=== PATIENT | male | born 1955 | race Caucasian/White ===

== ENCOUNTER → 2019-07-12 11:37 | Outpatient (CLI) | payer MEDICARE, OTHER, SELFPAY ==
--- NOTE | 2019-07-12 | DI.MRI.S_ITS ---
PROCEDURE: MR LUMBAR SPINE WO CON INDICATIONS: Other symptoms and signs involving the musculoskel TECHNIQUE: Noncontrast sagittal T1 spin echo and T2 fast echo, sagittal STIR, axial T1 and T2 fast spin echo through the lumbar spine. In cases with scoliosis, additional coronal T2 fast spin echo may be performed. COMPARISON: None. FINDINGS: Image quality: Excellent. Alignment and Curvature: There is normal bony alignment. Bone Marrow: There is a Schmorl's node in inferior endplate of L2. No acute vertebral body compression fractures. Spinal Cord: Conus medullaris terminates at the L1-L2 level. Visualized cord demonstrates normal signal and size. Paraspinous Soft Tissues: There is a cystic mass posterior to the left L4-L5 facet joint measuring 2.8 x 3.4 x 5.5 cm, most likely a large synovial cyst. L1-L2: Normal appearance. L2-L3: Mild loss of disc height and disc desiccation. There is diffuse posterior and posterior lateral disc bulge and disc osteophyte complex. Hqtk-zl-hnihjejv bilateral facet arthropathy and hypertrophy of ligamentum flavum. The central canal is mildly narrowed. Mild bilateral foraminal stenosis. L3-L4: Mild loss of disc height and disc desiccation. There is diffuse posterior and posterior lateral disc bulge and disc osteophyte complex. Fcut-tq-wjxokxke bilateral facet arthropathy and hypertrophy of ligamentum flavum. The central canal is mildly narrowed. Mild bilateral foraminal stenosis. L4-L5: Mqeg-cn-kjzsosfy loss of disc height and disc desiccation. There is diffuse posterior and posterior lateral disc bulge and disc osteophyte complex. Mild-to moderate bilateral facet arthropathy and hypertrophy of ligamentum flavum. There is a cystic mass posterior to the left facet joint measuring 2.8 x 3.4 x 5.5 cm, most likely a large synovial cyst. The central canal is mildly narrowed. Mild bilateral foraminal stenosis. L5-S1: Normal appearance. IMPRESSION: 1. Multilevel degenerative disc disease and facet arthropathy as described. 2. Mild central canal stenosis at L2-L3, L3-L4 and L4-L5. 3. Bmue-vw-oujkissg bilateral foraminal stenosis at L2-L3, L3-L4 and L4-L5. 4. A 2.8 x 3.4 x 5.5 cm cystic mass posterior to the left L4-L5 facet joint measuring, most likely a large synovial cyst. Dictated by: Yo Colindres M.D. on 07/12/2019 at 13:18 Approved by: Yo Colindres M.D. on 07/12/2019 at 13:29
== END ==
PROVIDERS: Family Provider Family Medicine; PCP Family Medicine; Visit Provider Internal Medicine Critical Care Medicine
DX: R29.898 Other symptoms and signs involving the musculoskeletal system (principal); M51.46 Schmorl's nodes, lumbar region; M51.36 Other intervertebral disc degeneration, lumbar region; M47.816 Spondylosis without myelopathy or radiculopathy, lumbar region; M48.061 Spinal stenosis, lumbar region without neurogenic claudication; M53.86 Other specified dorsopathies, lumbar region
CPT/HCPCS: 72148

== ENCOUNTER → 2019-08-26 10:34 | Outpatient (CLI) | payer MEDICARE, OTHER, SELFPAY ==
[2019-08-26 12:10] LABS: Add Manual Diff / Slide Review NO; Basophils Absolute Auto 100 /uL (0-100); Basophils Percent Auto 1.2 % (0-2); Eosinophils Absolute Auto 400 /uL (0-450); Eosinophils Percent Auto 7.8 % (2-4); Hematocrit 47.3 % (41-53); Hemoglobin 16.2 g/dL (13.5-17.5); Lymphocytes Absolute Auto 1300 /uL (1100-4500); Lymphocytes Percent Auto 24.7 % (25-40); Mean Corpuscular HGB Conc 34.2 % (30-36); Mean Corpuscular Hemoglobin 31.6 PG (26-34); Mean Corpuscular Volume 92.4 fL (80-100); Monocytes Absolute Auto 600 /uL (0-900); Monocytes Percent Auto 12.3 % (3-14); Neutrophils Absolute Auto 2800 /uL (1500-7000); Platelet Count 268 X10^3/uL (150-400); Red Blood Cell Count 5.12 X10^6/uL (4.5-5.9); Red Cell Distribution Width 14.5 % (11.6-14.8); White Blood Cell Count 5.1 X10^3/uL (4.5-11.0)
[2019-08-26 12:17] LABS: Alanine Aminotransferase 31 IU/L (<50); Albumin 4.6 g/dL (3.5-5.0); Albumin Globulin Ratio 1.4 (1.0-2.8); Alkaline Phosphatase 63 U/L (38-126); Aspartate Aminotransferase 32 IU/L (17-59); Bilirubin Total 0.8 mg/dL (0.2-1.3); Blood Urea Nitrogen 12 mg/dL (9-20); Calcium 9.3 mg/dL (8.4-10.2); Carbon Dioxide 28 mmol/L (22-32); Chloride 99 mmol/L (98-107); Cholesterol 195 mg/dL (140-199); Estimated Glomerular Filt Rate > 60.0 mL/min (>60); Globulin 3.3 g/dL (1.7-4.1); Glucose 87 mg/dL (80-110); HDL Cholesterol 61 mg/dL (40-60); HEMOLYSIS < 15 (0-50); LDL Cholesterol Calculated 122 mg/dL (<100); Potassium 4.5 mmol/L (3.4-5.1); Sodium 136 mmol/L (137-145); Total Protein 7.9 g/dL (6.3-8.2); Triglycerides 59 mg/dL (35-150)
[2019-08-26 15:52] LABS: Hep C Virus Ab w/Reflex Quant NEGATIVE s/c (NEGATIVE)
[2019-08-28 15:13] LABS: PSA Total 1.64 ng/mL (< 4.01)
[2019-08-29 21:45] LABS: Testosterone Free 296.7 pg/mL (35.0-155.0); Testosterone Total 1085 ng/dL (250-1100)
== END ==
PROVIDERS: Family Provider Family Medicine; PCP Family Medicine; Referring Provider Family Medicine; Visit Provider Family Medicine
DX: Z11.59 Encounter for screening for other viral diseases (principal); E29.1 Testicular hypofunction; I10 Essential (primary) hypertension
CPT/HCPCS: 36415; 80053; 80061; 84153; 84154; 84402; 84403; 85025; 86803

== ENCOUNTER → 2019-12-30 08:37 | Outpatient (CLI) | payer MEDICARE, OTHER, SELFPAY ==
--- NOTE | 2019-12-30 | DI.MRI.S_ITS ---
PROCEDURE: MR LUMBAR SPINE WO/W CON INDICATIONS: LUMBAR RADICULOPATHY TECHNIQUE: Noncontrast sagittal T1 spin echo and T2 fast spin echo, sagittal STIR, axial T1 and T2 fast spin echo through the lumbar spine. In cases with scoliosis, additional coronal T2 fast spin echo may be performed. After the administration of contrast, sagittal and axial T1 spin echo with fat saturation through the lumbar spine. COMPARISON: [facility], MR, MR LUMBAR SPINE WO CON, 07/12/2019, 11:55. FINDINGS: Image quality: Excellent. Alignment and curvature: There is normal bony alignment. Marrow: Multilevel degenerative endplate sclerosis and spurring. Diffuse facet arthropathy. Schmorl's node at the inferior endplate of L2 with adjacent marrow edema, increased since prior study. No acute vertebral body compression fractures. No suspicious marrow enhancement. Spinal cord: Conus medullaris terminates at the L1 level. Visualized spinal cord demonstrates normal signal, without suspicious enhancement. Paraspinous soft tissues: Postsurgical changes related to surgical resection of previously reported cystic mass at the level of L4-L5. There is solid-appearing enhancement present along the L4-L5 facet joint and L4-L5 spinous processes. No definite rim enhancing abscess is seen. There is also overlying subcutaneous enhancement. There is also mild adjacent marrow edema within the spinous process of L4, which could also be reactive/degenerative since it was present on the prior study although to a slightly lesser degree. Dorsal epidural lipomatosis mostly at the level of L4-L5. This is unchanged L1-L2: Normal appearance. L2-L3: Mild canal narrowing. Partial effacement of both lateral recesses with bilaterally symmetric appearance. Mild left foraminal narrowing. Moderate right foraminal stenosis. No interval change L3-L4: Moderate canal narrowing. Partial effacement of both lateral recesses with bilaterally symmetric appearance. Moderate left foraminal stenosis with slight nerve root compression. Mild right foraminal narrowing with borderline nerve root compression. No interval change L4-L5: Moderate canal narrowing. Partial effacement of both lateral recesses with bilaterally symmetric appearance. Mild right foraminal narrowing with slight nerve root compression. Severe left foraminal stenosis with nerve root compression. This appears unchanged L5-S1: No canal stenosis. No right foraminal narrowing. Moderate left foraminal stenosis with slight nerve root compression which is unchanged.. IMPRESSION: Status post resection of large left posterior paraspinal cystic mass at the L4-L5 level. In the operative bed there is solid-appearing peripheral enhancement which could reflect postoperative granulation tissue although cannot exclude infectious cellulitis. No discrete drainable abscess identified. Recommend clinical and laboratory correlation. Multilevel spondylosis and facet disease which is grossly unchanged as detailed above. Worsening marrow edema adjacent to Schmorl's node in the inferior endplate of L2. Dictated by: Drake Hernandez M.D. on 12/30/2019 at 10:23 Approved by: Drake Hernandez M.D. on 12/30/2019 at 10:42
== END ==
PROVIDERS: Family Provider Family Medicine; PCP Family Medicine; Referring Provider Physician Assistant; Visit Provider Physician Assistant
DX: M54.5 Low back pain (principal); M47.816 Spondylosis without myelopathy or radiculopathy, lumbar region
CPT/HCPCS: 72158; A9579

== ENCOUNTER → 2020-11-06 12:45 | Outpatient (CLI) | payer MEDICARE, SELFPAY ==
[2020-11-07 01:50] LABS: COVID19 - ORCAS (NP or Nasal) Negative (Negative)
== END ==
PROVIDERS: Visit Provider Family Medicine
DX: Z01.818 Encounter for other preprocedural examination (principal); Z20.822 Contact with and (suspected) exposure to COVID-19
CPT/HCPCS: C9803; U0003

== ENCOUNTER → 2021-04-20 11:34 | Outpatient (CLI) | payer MEDICARE, OTHER, SELFPAY ==
--- NOTE | 2021-04-20 | DI.RAD.S_ITS ---
PROCEDURE: XR CERVICAL SPINE MIN 6V INDICATIONS: Other cervical disc degeneration, unspecified cerv TECHNIQUE: 7 views of the cervical spine acquired. COMPARISON: None. FINDINGS: Bones: No fractures or dislocations to the C7 level. Oblique images demonstrate no substantial bony foraminal stenoses. Anterior fixation at this C4-6 with discectomy change. Soft tissues: No prevertebral soft tissue swelling. IMPRESSION: No acute osseous abnormality. Dictated by: Marcus Cruz M.D. on 04/20/2021 at 13:00 Approved by: Marcus Cruz M.D. on 04/20/2021 at 13:02
--- NOTE | 2021-04-20 | DI.MRI.S_ITS ---
PROCEDURE: MR CERVICAL SPINE WO CON INDICATIONS: Other cervical disc degeneration, unspecified cerv TECHNIQUE: Noncontrast sagittal T1 spin echo and T2 fast spin echo, sagittal STIR, foraminal oblique sagittal T2 fast spin echo, and axial gradient echo or T2 fast spin echo through the cervical spine. COMPARISON: [facility], CR, XR CERVICAL SPINE MIN 6V, 04/20/2021, 11:55. [facility], MR, C-SPINE WITHOUT CONTRAST, 09/09/2014, 13:51. FINDINGS: Image quality: Excellent. Alignment and Curvature: Interval ACDF at C4 through C6 with anterior plate and screw fixation and mature interbody fusion since the previous cervical spine MRI. Bone Marrow: Marrow demonstrates normal overall signal. Spinal Cord: Visualized spinal cord has normal size and signal. No cerebellar tonsillar herniation. Paraspinous Soft Tissues: No paravertebral masses. Prevertebral soft tissues are normal in thickness. C2-C3: No central canal stenosis. Prominent right facet hypertrophy. Exuberant left facet hypertrophy. Moderate right foraminal narrowing with flattening deformity on the exiting right C3 nerve root. Severe left foraminal narrowing with left foraminal C3 nerve root impingement. C3-C4: No canal stenosis. Bilateral facet hypertrophy. Moderate bilateral foraminal narrowing with flattening deformity on the exiting bilateral C4 nerve roots. C4-C5: Fused. Bilateral facet hypertrophy, left greater than right. Mild right foraminal narrowing. Moderate left foraminal narrowing with flattening deformity on the exiting left C5 nerve root. C5-C6: Fused. No canal stenosis. Moderate bilateral foraminal narrowing with flattening deformity on the exiting bilateral C6 nerve roots. C6-C7: Disc bulge. Borderline canal stenosis. Bilateral uncovertebral joint hypertrophy. Bilateral facet hypertrophy. Severe right foraminal narrowing and marked left foraminal narrowing with bilateral foraminal C7 nerve root impingement. C7-T1: No canal stenosis or foraminal stenosis. IMPRESSION: 1. Interval ACDF at C4 through C6. 2. There is significant multilevel facet arthropathy. 3. There is moderate or greater multilevel foraminal narrowing as described above. Findings include severe left foraminal narrowing at C2-C3, severe right foraminal narrowing at C6-C7, and marked left foraminal narrowing at C6-C7. 4. Borderline canal stenosis at C6-C7. Dictated by: Nader Posada M.D. on 04/20/2021 at 15:02 Approved by: Nader Posada M.D. on 04/20/2021 at 15:12
== END ==
PROVIDERS: Family Provider Family Medicine; PCP Family Medicine; Referring Provider Family Medicine; Visit Provider Family Medicine
DX: M47.22 Other spondylosis with radiculopathy, cervical region (principal); M48.02 Spinal stenosis, cervical region; Z98.1 Arthrodesis status
CPT/HCPCS: 72052; 72141

== ENCOUNTER → 2022-05-16 15:01 | Outpatient (CLI) | payer MEDICARE, OTHER, SELFPAY ==
--- NOTE | 2022-05-16 15:03 | DI.MRI.S_ITS ---
PROCEDURE: MR SHOULDER LT WO CON INDICATIONS: INJURY TO TENDON OF THE ROTATOR CUFF LEFT SHOULDER TECHNIQUE: Noncontrast oblique coronal T2 fast spin echo with fat saturation, oblique sagittal T1 spin echo and T2 fast spin echo with fat saturation, axial T1 spin echo and T2 fast spin echo with fat saturation through the shoulder. COMPARISON: None. FINDINGS: Image quality: Excellent. Rotator cuff: Low to moderate grade articular and bursal surface partial thickness tear involving distal supraspinatus at its insertion on the humeral head is seen extending to musculotendinous junction. Distal infraspinatus tendinosis and low-grade bursal surface partial-thickness tear is seen. Low-grade intrasubstance partial-thickness tear in distal subscapularis is seen. No full-thickness rotator cuff tendon rupture. Sagittal images demonstrate no significant muscle atrophy. Bones and bursae: No bone marrow contusions or fractures. Mild to moderate acromioclavicular joint osteoarthritic changes are seen with joint space narrowing, subchondral sclerosis and downward osteophyte formation depressing the musculotendinous junction of supraspinatus. Mild to moderate glenohumeral joint osteoarthritic changes also seen with joint space narrowing and inferior marginal osteophyte formation. There is moderate amount of joint effusion and subacromial subdeltoid bursal fluid. Multiple loose bodies are noted in subcoracoid bursa and subacromial subdeltoid bursa measures up to 9 mm in size series 5 images 10 and 18. Capsule and soft tissues: Signal abnormality and contour irregularity involving posterior superior labrum at 10 to 12 o'clock position. Signal abnormality is also seen in inferior labrum at 5 to 7 o'clock position. The long head of the biceps tendon appears thickened intra-articularly with intrasubstance T2 hyperintense signal. The rotator interval appears normal, without fibrosis. The coracohumeral ligament is normal in thickness. IMPRESSION: 1. Low to moderate grade articular and bursal surface partial thickness tear involving distal supraspinatus extending to musculotendinous junction. Distal infraspinatus tendinosis and low-grade bursal surface partial-thickness tear. Low-grade intrasubstance partial-thickness tear in distal subscapularis. No full-thickness rotator cuff tendon rupture. 2. Mild to moderate acromioclavicular joint and glenohumeral joint osteoarthritis. No acute fracture or dislocation. Moderate amount of joint effusion, subacromial subdeltoid bursal fluid and subcoracoid bursal fluid with multiple intra-articular loose bodies as above. 3. Suggestion of posterior superior labral tear at 10 to 12 o'clock position and inferior labral tear at 5 to 7 o'clock position. 4. Tendinosis and low-grade intrasubstance partial-thickness tear involving proximal intra-articular portion of long head of biceps. Dictated by: Venancio Greco M.D. on 05/16/2022 at 21:15 Approved by: Venancio Greco M.D. on 05/16/2022 at 21:21
== END ==
PROVIDERS: Family Provider Family Medicine; PCP Family Medicine; Referring Provider Family Medicine; Visit Provider Family Medicine
DX: S46.092A Other injury of muscle(s) and tendon(s) of the rotator cuff of left shoulder, initial encounter (principal); M19.012 Primary osteoarthritis, left shoulder; S46.112A Strain of muscle, fascia and tendon of long head of biceps, left arm, initial encounter; X58.XXXA Exposure to other specified factors, initial encounter
CPT/HCPCS: 73221

== ENCOUNTER → 2022-06-21 10:47 | Outpatient (CLI) | payer MEDICARE, OTHER, SELFPAY ==
[2022-06-21 11:46] LABS: COVID19 -Nasal RAPID Negative (Negative)
[2022-06-21 12:07] LABS: BUN Creatinine Ratio 13.3 (6-22); Blood Urea Nitrogen 10 mg/dL (9-20); Calcium 9.5 mg/dL (8.4-10.2); Carbon Dioxide 30 mmol/L (22-32); Chloride 95 mmol/L (98-107); Estimated Glomerular Filt Rate > 60 mL/min (>60); Glucose 86 mg/dL (80-110); HEMOLYSIS < 15 (0-50); Potassium 4.5 mmol/L (3.4-5.1); Sodium 134 mmol/L (137-145)
== END ==
PROVIDERS: Family Provider Family Medicine; PCP Family Medicine; Referring Provider Podiatrist; Visit Provider Podiatrist
DX: Z01.812 Encounter for preprocedural laboratory examination (principal); Z20.822 Contact with and (suspected) exposure to COVID-19
CPT/HCPCS: 36415; 80048; 87635; C9803

== ENCOUNTER 2022-06-21 11:54 | Day surgery (SDC) | payer MEDICARE, OTHER, SELFPAY ==
[2022-06-19 15:01] VITALS: BMI 27.8
[2022-06-21] VITALS (8 sets, daily range): BP systolic 98–154; BP diastolic 64–85; PULSE 63–73; RESP 11–18; TEMP 36.1–36.6; O2SAT 95–100; BMI 27.8
[2022-06-21] MEDS: LACTATED RINGERS 1,000 ML 100 ML IV (12:46)
--- NOTE | 2022-06-21 13:40 | PM.PREOP ---
Pre-operative Note COVID-19 COVID-19 status: Negative Result date/Date tested (Pos, Neg/Pending): 06/21/22 Interval Note History & Physical reviewed/Exam performed by Physician: Yes Changes to H&P: No
[2022-06-21] MEDS: CEFAZOLIN 2 GM/100 ML PREMIX 100 ML IV (13:47)
--- NOTE | 2022-06-21 14:10 | SUR.OPER ---
Supine on padded OR bed, head on pillow, arms secured on padded arm boards at <90 degrees abduction, legs uncrossed, safety belt at waist, tape over blanket over lower leg right, gel bump left hip
[2022-06-21] MEDS: LIDOCAINE 2% INJ MDV 50ML 50 MG INJ (14:20)
[2022-06-21] MEDS: BUPIVACAINE 0.5% W/ EPI (PF) 30 ML VIAL INJ (14:25)
--- NOTE | 2022-06-21 16:32 | P.OP_ITS ---
Operative Date/Time/Diagnoses Date of procedure: 06/21/22 Time of procedure: 14:00 Pre-op diagnosis: Left 5th hammertoe and 4th interspace recurrent wound with corn Post-op diagnosis: same Procedure & Clinicians Procedure: Left 5th toe amputation Same procedure as scheduled: Yes Indications: 67-year-old male with pain to the 4th digital interspace on the left foot. He has a area that becomes broken down with a corn and wound and rubbing chronically from his 5th toe to the portion of the 4th toe that is still remains from an injury that happened many years ago. Conservative measures have failed to alleviate his pain and he wished to have surgical intervention at this time. We spoke of the risks, potential complications, alternatives, and expected outcomes. Consent was signed, there was no contraindication to the procedure at this time. Surgeon: Deb Rodriguez Click Yes if Unassisted: Yes Anesthesia Type: General Operative Notes Closure Type: primary Specimen(s): none sent Estimated Blood Loss (mL): 20 Blood products transfused: none Procedure in detail: The patient was brought to the operating room and placed on the operating table in the supine position. Tourniquet was placed about the left ankle although throughout the case it was not used. He was well-padded and appropriately aligned. After induction of general anesthesia and prep of the foot in the region of the 5th ray, local anesthesia was delivered. Next, the foot and ankle were prepped and draped in the usual aseptic manner. The tourniquet was inflated. After check of anesthesia, the corn and pre ulcerative lesion was excised from the sulcus of the 4th interspace. Next, a full-thickness semi-circumferential incision was made around the 5th toe. This was then continued into the metatarsophalangeal joint linearly. This allowed me to remove the phalanges from the skin and then the nail itself. The area was irrigated with copious amounts of normal sterile saline. No necrotic tissue or abscesses were noted. Excess skin was revised as well as some scarring from his original procedure. Excess tendon from removed toe was also excised. Skin and tissue was revised to allow for appropriate closure. Vessels were cauterized and ligated as necessary. The skin was able to flap over well from the lateral 5th mainspring former location and coverage was appropriate to the lateral 4th toe. 4-0 Vicryl was used subcutaneously for closure and 3-0 and 4-0 nylon for the skin. The area was dressed with a sterile lightly compressive dressing. Complications: none Post-operative Condition: stable Disposition: PACU Plan for aftercare: Following a period of postoperative monitoring, the patient will be discharged to home on written and oral postoperative instructions including keeping the dressing dry and intact, no greater than 50% weight to the surgical foot, elevating the foot when seated home. DVT prevention techniques have been reviewed. For the 1st postoperative visit the dressing will be changed and close to the 3rd postoperative week we will likely remove the sutures.
== END 2022-06-21 15:48 | disposition home or self-care (01) ==
PROVIDERS: Family Provider Family Medicine; PCP Family Medicine; Referring Provider Podiatrist; Visit Provider Podiatrist
PROC: (CPT 28820; principal; 2022-06-21 13:45)
DX: M20.42 Other hammer toe(s) (acquired), left foot (principal); L84 Corns and callosities; Z20.822 Contact with and (suspected) exposure to COVID-19
CPT/HCPCS: 28820; 36415; 80048; 87635; C9803; J0690; J2250; J2405; J2704; J3010

== ENCOUNTER → 2024-09-21 08:17 | Outpatient (CLI) | payer MEDICARE, OTHER, SELFPAY ==
--- NOTE | 2024-09-21 08:20 | DI.RAD.S_ITS ---
PROCEDURE: XR LUMBAR SPINE MIN 4V INDICATIONS: back pain TECHNIQUE: 5 views of the lumbar spine were acquired, including flexion and extension views. COMPARISON: None. FINDINGS: Bones: 5 nonrib-bearing vertebrae are present. There is normal bony alignment. Moderate L3-L4 and L4-L5 disc height loss with adjacent endplate sclerosis and anterior osteophytosis. Multilevel anterior osteophytosis otherwise noted throughout the lumbar spine. Chronic appearing anterior wedging deformities the T12 and L1 vertebral bodies have resulted in less than 25% anterior height loss. No acute vertebral body compression fractures. No suspicious bony lesions. Soft tissues: Overlying bowel gas pattern is normal. No suspicious soft tissue calcifications. Oblique images: No pars defects. IMPRESSION: Degenerative change of the lumbar spine without acute bony abnormality. Dictated by: Tj Albert M.D. on 09/22/2024 at 3:28 Approved by: Tj Albert M.D. on 09/22/2024 at 3:30
--- NOTE | 2024-09-21 08:21 | DI.MRI.S_ITS ---
PROCEDURE: MR LUMBAR SPINE WO CON INDICATIONS: BACK PAIN TECHNIQUE: Noncontrast sagittal T1 spin echo and T2 fast echo, sagittal STIR, and T2 fast spin echo through the lumbar spine. In cases with scoliosis, additional coronal T2 fast spin echo may be performed. COMPARISON: [facility], MR, MR LUMBAR SPINE WO/W CON, 12/30/2019, 9:00. [facility], CR, XR LUMBAR SPINE MIN 4V, 09/21/2024, 8:54. [facility], MR, MR LUMBAR SPINE WO CON, 07/12/2019, 11:55. FINDINGS: Image quality: Excellent. Alignment and Curvature: 5 lumbar type vertebral bodies are present by plain film. There is loss of normal lumbar lordosis. Bone Marrow: Marrow is of normal overall signal. No acute vertebral body compression fractures. Mild reactive signal throughout the endplates of the lumbar and lower thoracic spine, most prominently at L2-L3. Spinal Cord: Conus medullaris terminates at the lower L1 level. Visualized cord demonstrates normal signal and size. Paraspinous Soft Tissues: No paravertebral masses. T12-L1: Mild disc height loss. Moderate disc desiccation. Mild diffuse disc bulge. Mild canal stenosis. Mild bilateral foraminal stenosis. No significant change. L1-L2: Mild disc desiccation and diffuse disc bulge. Mild facet and ligamentum flavum hypertrophy. Mild epidural lipomatosis. Mild canal stenosis. Mild bilateral foraminal stenosis. No significant change. L2-L3: Moderate disc desiccation. Mild disc height loss and diffuse disc bulge. Mild facet and ligamentum flavum hypertrophy. Mild epidural lipomatosis. Mild canal stenosis. Mild bilateral foraminal stenosis. No significant change. L3-L4: Mild disc desiccation and diffuse disc bulge. Mild facet and ligamentum flavum hypertrophy. Mild epidural lipomatosis. Mild canal stenosis. Mild bilateral foraminal stenosis. No significant change. L4-L5: Mild disc height loss and desiccation. Mild diffuse disc bulge. Mild bilateral facet and ligamentum flavum hypertrophy. Mild epidural lipomatosis. Mild canal stenosis. Moderate left and mild right foraminal stenosis. No significant change. L5-S1: Mild disc desiccation and diffuse disc bulge. Mild bilateral facet and ligamentum flavum hypertrophy. Mild canal stenosis. Increased, moderate bilateral foraminal stenosis. IMPRESSION: 1. Multilevel degenerative disc and facet disease, as well as ligamentum flavum hypertrophy and epidural lipomatosis. 2. Mild multilevel canal stenosis. 3. Multilevel foraminal stenoses, worst at L4-L5 and L5-S1 where there are moderate foraminal stenoses. Dictated by: Tre Gould M.D. on 09/21/2024 at 10:30 Approved by: Tre Gould M.D. on 09/21/2024 at 10:34
== END ==
PROVIDERS: Family Provider Family Medicine; PCP Family Medicine; Referring Provider Family Medicine; Visit Provider Family Medicine
DX: M48.061 Spinal stenosis, lumbar region without neurogenic claudication (principal); M48.07 Spinal stenosis, lumbosacral region; M47.816 Spondylosis without myelopathy or radiculopathy, lumbar region; M47.817 Spondylosis without myelopathy or radiculopathy, lumbosacral region; M51.360 Other intervertebral disc degeneration, lumbar region with discogenic back pain only; M51.370 Other intervertebral disc degeneration, lumbosacral region with discogenic back pain only
CPT/HCPCS: 72110; 72148